=== PATIENT | male | born 1960 | race Caucasian/White ===

== ENCOUNTER 2016-10-06 00:08 | Day surgery (SDC) | payer OTHER ==
[~2016-10-06] VITALS: Ht 177.8 cm; Wt 72.5 kg
[2016-10-06] VITALS (11 sets, daily range): BP systolic 99–125; BP diastolic 54–73; PULSE 73–88; RESP 14–20; O2SAT 97–99
[~2016-10-06 00:08] MED LIST: ATOR10TA66 PO; CARV3.122 PO; Fentanyl TOPICAL; GABA-502 PO; LOV100 SUBQ; MULT1CAP33 PO; NICO1PAT6 TOPICAL; NITR0.4T SL; OMEP40CA36 PO; OXYC5TAB72 PO; ZOLP5TAB6 PO
[2016-10-06] MEDS ORDERED: 0.9% Sodium Chloride 1,000 ML IV ONE (07:05)
[2016-10-06] MEDS ORDERED: CITA20TA11 PO (09:11)
[2016-10-06] MEDS ORDERED: LISI-571 PO (09:11)
[2016-10-06] MEDS ORDERED: OXYC10TA8 PO (09:17)
[2016-10-06] MEDS ORDERED: DOCU-41 PO (09:17)
[2016-10-06 09:23] LABS: BASOPHILS % (AUTO) 0.7 % (0-3); EOSINOPHILS % (AUTO) 6.5 % (0-5); MONOCYTES % (AUTO) 7.9 % (4-12); Mean Corpuscular Hemoglobin 32.4 pg (27.0-35.0); Mean Corpuscular Volume 91.7 fL (81-100); NEUTROPHILS % (AUTO) 63.2 % (40-74); Platelet Count 145 bil/L (150-400)
[2016-10-06] MEDS ORDERED: Nitroglycerin 50,000 mcg/250 mL D5W Premix IV ONE (09:48)
[2016-10-06] MEDS ORDERED: Heparin 1,000 Units/500 mL NS Premix IV ONE (09:48)
[2016-10-06] MEDS ORDERED: Heparin 5,000 Units/500 mL NS Premix IV ONE (09:49)
[2016-10-06] MEDS ORDERED: Heparin 1,000 Unit/mL 10 mL Inj ONE (09:49)
[2016-10-06] MEDS ORDERED: 0.9% Sodium Chloride 50 ML ONE (09:55)
--- NOTE | 2016-10-06 10:12 | NUR ---
Pre-heart cath prep Explained pre- and post-procedure process to pt. and . Pt. understands the importance of bedrest post procedure. Pt. has 2 patent peripheral IV. Pre-med (NS, Benadryl IV, and Aspirin PO) were given as ordered. Report given to Beatrice Man RN. Addendum: 10/06/16 at 1017 by JING CAMARILLO RN Pt. transferred to heart semiconductor lab technician at 1017.
[2016-10-06] MEDS ORDERED: fentaNYL-PF 50 mCg/mL 2 mL Inj ONE ×2 (10:22→10:48)
[2016-10-06] MEDS ORDERED: Ondansetron 2 mg/mL 2 mL Inj IVPUSH PRN (11:40)
[2016-10-06] MEDS ORDERED: Atropine 1 mg/10 mL (Code) Syringe IVPUSH PRN (11:40)
[2016-10-06] MEDS ORDERED: HYDROcodone-APAP 5-325 mg Tablet PO PRN (11:40)
[2016-10-06] MEDS ORDERED: 0.9% Sodium Chloride 1,000 ML IV SCH (11:40)
--- NOTE | 2016-10-06 11:52 | ABG ---
DateTimeAnalyzed 11:46:00 -_ pH ____7.346 - 7.350 7.450 pCO2 ___46.0__ -mmHg 35.0 45.0 pO2 ___79.0__ -mmHg 69.0 116 HCO3- ___24.5__ -mmol/L 22.0 26.0 ABE ___-1.0__ -mmol/L -2.0 2.0 tHb ___14.8__ -g/dL O2Hb ___91.6__ -% COHb ____3.4__ -% MetHb ____0.9__ -% sO2 ___95.7__ -% 25.0 FIO2 __100.0__ -% Drawn By _CATH [facility] - Date/Time Notified____ 11:51:00 -_ Notified By GJ - Notified Whom _CATH [facility] - B 750 -mmHg tO2 ___19.1__ -Vol% Sunil test N/A -
--- NOTE | 2016-10-06 11:55 | ABG ---
DateTimeAnalyzed 11:50:00 -_ pH ____7.332 - 7.350 7.450 pCO2 ___50.2__ -mmHg 35.0 45.0 pO2 ___43.4__ -mmHg 69.0 116 HCO3- ___25.8__ -mmol/L ABE ___-0.1__ -mmol/L tHb ___12.7__ -g/dL O2Hb ___74.2__ -% COHb ____3.5__ -% MetHb ____1.0__ -% sO2 ___77.7__ -% FIO2 ___21.0__ -% Drawn By _CATH LAB - Date/Time Notified____ 11:54:00 -_ Notified By GJ - Notified Whom [facility] - B 750 -mmHg tO2 ___13.2__ -Vol% Sunil test _Positive -
[2016-10-06] MEDS ORDERED: HYDROmorphone 1 mg/mL Inj ONE (11:56)
--- NOTE | 2016-10-06 11:58 | ABG ---
DateTimeAnalyzed 11:54:00 -_ pH ____7.325 - pCO2 ___51.1__ -mmHg pO2 ___41.4__ -mmHg HCO3- ___25.9__ -mmol/L ABE ___-0.2__ -mmol/L tHb ___12.7__ -g/dL O2Hb ___71.5__ -% COHb ____3.5__ -% MetHb ____1.0__ -% sO2 ___74.9__ -% FIO2 ___21.0__ -% Drawn By gj - Date/Time Notified____ 11:57:00 -_ Notified By GJ - Notified Whom __[facility] - B 750 -mmHg tO2 ___12.8__ -Vol% Sunil test N/A -
[2016-10-06] MEDS ORDERED: HYDROmorphone 0.5 mg/0.5 mL iSecure Syringe IVPUSH SCH (12:00)
--- NOTE | 2016-10-06 14:36 | NUR ---
No complication during recovery of heart cath today for evaluation of coronary arteries and MR valve. Star closure device used to seal artery post heart cath - some track ooze seen early in recovery, no hematoma. Right femoral dressing changed prior to D/C from [facility] - site remains dry/intact with no hematoma when discharged from [facility]> NSR during recovery with no ectopy. BP stable during recovery. Chronic pain/neuropathy of both lower legs upon admit is without change. Lower back discomfort when patient returned to [facility] post heart cath. Dr Antonio ordered 0.5mg of Dilaudid IVP - that did help relieve the acute episode, but patient states, "I think I pulled something when I loaded a cart at home". Back pain has improved, but has not gone away totally. Pt declines Ice pack, or warm pack. Pt has a planned surgical date for valve replacement at [place]. D/C home care instructions reviewed with patient and patient's , "Grace".
--- NOTE | 2016-10-10 18:37 | PCM.CVCATH ---
Cardiac Cath Report Date of Service Oct 10, 2016 Primary Indication Severe mitral regurgitation Procedure 1. Left heart catheterization 2. Right heart catheterization 3. Selective coronary angiogram 4. Saturation runs 5. Thermodilution cardiac outputs 6. Right femoral angiogam Vascular Access Right common femoral artery and vein Procedure Details Compete heart catheterization details The patient was brought into the catheterization laboratory in nothing by mouth state. Time out was taken. Patient was explained about the risk and benefits of the procedure. The patient was prepped and sterilized in the usual and appropriate fashion. Lidocaine 1% was used to give local anesthetic to the right groin region. Using a slip tip needle with a syringe the right femoral vein was obtained and the short wire was used to insert the 7 [place] sheath. I then proceeded with the modified Seldinger technique and the right femoral artery was obtained and a 6 [place] sheath was inserted. Both sheaths were flushed with heparinized saline. A [place]-Ros[place] catheter was then inserted in the right femoral vein and the right heart hemodynamics were recorded. Pulmonary wedge pressure was obtained. Thermodilution cardiac outputs were performed. Saturations were obtained within the main pulmonary artery as well as simultaneously obtaining the arterial saturation on room air. The right ventricular and right atrial saturations were also obtained. The [place]-Ros[place] catheter was removed. A 6 [place] FL 4 diagnostic catheter was advanced and engaged into the left main. The left coronary angiography was performed in multiple views. The catheter was exchanged over the wire for a 6 [place] FR4 diagnostic catheter. The catheter was exchanged for a right coronary ostium and the right coronary angiography was performed in multiple views. The catheter was removed over the wire and exchanged for 6 [place] angle pigtail catheter. LV hemodynamics were recorded. Left ventricular angiography was performed at 12 mL/s for total 30 mL of contrast. LV pullback was performed. All catheters were removed. The right femoral angiogram was performed to evaluate for closure device. Hemostasis was obtained with Star close. The patient was transferred back to special observation unit for post procedural monitoring. There were no immediate complications. Total fluoroscopy time: 8.1 minutes Total fluoroscopy dosage: 445 mGy Estimated blood loss: 5 mL Total contrast: 115 mL Findings Complete heart catheterization findings: 1. Hemodynamics and cardiac outputs: A. Left ventricular systolic pressure: 118 mmHg B. Left ventricular end-diastolic pressure: 16 mmHg C. Systemic arterial pressure: 116/68 mmHg with a mean pressure of 90 mmHg. D. Pulmonary arterial pressure: 34/10 mmHg with a mean pressure of 20 mmHg. E. Right ventricular pressure: 32/0 mmHg with a right ventricular end-diastolic pressure of 6 mmHg. F. Right atrial pressure: 3 mmHg. G. Thermodilution cardiac output and cardiac index: 6.20 mL/min and 3.26 L/min/ m2. H. Iris cardiac output and cardiac index: 7.17 mL/min and 3.77 L/min/m2. I. Saturation runs: mix venous 75 %, right atrial 78 %, and arterial 96 %. On room air. 2. Selective coronary angiography: A. Left main: The artery has no evidence of significant disease. It bifurcates into the left anterior and left circumflex arteries. B. Left anterior descending artery: There is no evidence of significant disease. C. Left circumflex artery: There is no evidence of significant disease. D. Right coronary artery: There is no evidence of significant disease. 3. Left ventricular angiogram: The ejection fraction is around 60%. There is no appreciable LV wall motion abnormalities. Left atrial chamber size is large and opacifies completely within 2 cardiac cycles suggestive of severe mitral regurgitation. 4. Right femoral angiogram: There is no evidence of significant disease. Summary 1. Normal coronaries angiographically. 2. Normal LV ejection fraction. 3. Severe mitral regurgitation. 4. Borderline elevated right-sided heart pressures and left ventricular end- diastolic pressure. Recommendations The patient is already scheduled for his mitral valve repair. The report and images will be sent to Dr. Agarwal. Case was also discussed with Dr. Agarwal. copies to: Americo Agarwal MD; Sunil Krause MD, Oscar J MD Oct 10, 2016 18:16
== END 2016-10-06 23:59 | disposition home or self-care (01) ==
LOC: SOUO 00:08
PROVIDERS: ATTEND Internal Medicine Cardiovascular Disease
DX: I34.0 Nonrheumatic mitral (valve) insufficiency (principal); Z86.19 Personal history of other infectious and parasitic diseases; Z86.718 Personal history of other venous thrombosis and embolism; F17.210 Nicotine dependence, cigarettes, uncomplicated; Z85.828 Personal history of other malignant neoplasm of skin; B18.2 Chronic viral hepatitis C; J44.9 Chronic obstructive pulmonary disease, unspecified
CPT/HCPCS: 36415; 80048; 82375; 82803; 85025; 93005; 93460; 99152; 99153; C1760; C1769; J1170; J1200; J1644; J2250; J3010; J7030; Q9967